=== PATIENT | male | born 1960 | race Caucasian/White ===

== ENCOUNTER 2021-11-10 10:58 | Emergency (ER) | payer MEDICAID ==
[~2021-11-10] VITALS: Ht 160 cm; Wt 81.6 kg
[2021-11-10 11:01] VITALS: BP 143/85
--- NOTE | 2021-11-10 11:07 | NUR ---
PT W/C ASSISTED TO HERMINIA Cisneros
--- NOTE | 2021-11-10 11:12 | NUR ---
HOLLI ELKINS WITH PT IN A FOR FURTHER EVALUATION.
--- NOTE | 2021-11-10 11:14 | NUR ---
61 Y/O MALE C/O RIGHT KNEE PAIN 02/27 DESCRIBES ACHING NON-RADIATING X 2 DAYS. PT STATES TYNENOL PRIOR TO ARRIVAL WITH SOME RELIEF. DENIES TRAUMA/INJURY. DENIES PMH NKA
[2021-11-10] MEDS: KETOROLAC 30 MG/ML VIAL IM ONE (11:23)
--- NOTE | 2021-11-10 11:45 | NUR ---
PT TAKEN TO XR VIA W/C.
--- NOTE | 2021-11-10 11:56 | NUR ---
PT TAKEN TO [facility] A VIA W/C FROM XR.
[2021-11-10] MEDS ORDERED: NAPR-54 PO (13:09)
--- NOTE | 2021-11-10 13:15 | NUR ---
PT GIVEN CRISTOPHER
[2021-11-10 13:33] VITALS: BP 136/79
--- NOTE | 2021-11-10 13:33 | NUR ---
Patient discharged with v/s stable. Written and verbal after care instructions given FOR ACUTE KNEE PAIN and explained. Patient alert, oriented and verbalized understanding of instructions. Ambulatory with steady gait. All questions addressed prior to discharge. ID band removed. Patient advised to follow up with PMD. Rx of NAPROXEN given. Patient educated on indication of medication including possible reaction and side effects. Opportunity to ask questions provided and answered.
== END 2021-11-10 13:33 | disposition home or self-care (01) ==
LOC: MED 10:58
DX: M25.561 Pain in right knee (principal); Z79.1 Long term (current) use of non-steroidal anti-inflammatories (NSAID)
CPT/HCPCS: 73562; 96372; 99283; J1885